=== PATIENT | male | born 1950 | race Caucasian/White ===

== ENCOUNTER → 2021-01-10 | Day surgery (SDC) | payer MEDICARE, BC ==
[2021-01-08 09:47] LABS: BASOPHILS # (AUTO) 0.1 (0.0-0.1); BASOPHILS % 1.1 % (0.0-1.0); EOSINOPHILS # (AUTO) 0.3 (0.0-0.4); HEMOGLOBIN 16.8 g/dL (12.0-16.0); LYMPHOCYTES # (AUTO) 2.2 (1.0-3.2); LYMPHOCYTES % 26.4 % (18.0-39.1); MEAN CORPUSCULAR HEMOGLOBIN 28.3 pg (28-32); MEAN CORPUSCULAR HGB CONC 32.9 g/dL (31-35); MEAN CORPUSCULAR VOLUME 85.9 fL (81-99); MONOCYTES # (AUTO) 0.8 (0.2-0.8); MONOCYTES % 8.9 % (4.4-11.3); NEUTROPHILS # (AUTO) 5.1 (2.1-6.9); NEUTROPHILS % 60.2 % (38.7-80.0); PLATELET COUNT 154 x10e3/uL (140-360); RED BLOOD COUNT 5.94 x10e6/uL (3.6-5.1); RED CELL DISTRIBUTION WIDTH 14.2 % (11.7-14.4)
[2021-01-08 10:05] LABS: ANION GAP 14.3 mmol/L (8-16); CALCIUM 9.4 mg/dL (8.4-10.2); CREATININE, SERUM 1.08 mg/dL (0.57-1.11); POTASSIUM 4.3 mmol/L (3.5-5.1)
[~2021-01-10] MED LIST: B&O 60MG R/S 60 MG SUPP PR ONE; CEFTRIAXONE 1 GM VIAL ONE; CIALIS5 MG PO; DEXAMETHASONE SOD PHOS INJ 4 MG/ML VIAL ONE; FINASTERIDE5 MG PO; GENTAMICIN 80MG/NS 100 ML 200 ML IV ONE; IOPAMIDOL 300MG/ML 50ML INFUS..BTL IV ONE; LIDOCAINE HCL 2% LOCAL INJ 5 ML SDV VIAL INJ ONE; LIPITOR10 MG PO; METFORMIN HCL500 MG PO; ONDANSETRON HCL INJ 2MG/ML 2ML 2 MG/ML VIAL ONE; POVIDONE IODINE 0.05% 0.05 % ML PO ONE; PROPOFOL IV EMULSION 10 MG/ML 20 ML VIAL ONE; SEVOFLURANE INHAL SOLN 250 ML PEN BTL ONE; SODIUM CHLORIDE 0.9% 50ML 50 ML ONE
[2021-01-10 13:10] VITALS: BP 157/88
== END | disposition home or self-care (01) ==
LOC: OR 08:53 → EDSEX 09:00
PROVIDERS: ATTEND Urology
DX: N40.1 Benign prostatic hyperplasia with lower urinary tract symptoms (principal); N13.8 Other obstructive and reflux uropathy; R39.12 Poor urinary stream; R35.0 Frequency of micturition; N39.41 Urge incontinence; R35.1 Nocturia; R39.14 Feeling of incomplete bladder emptying; N52.9 Male erectile dysfunction, unspecified; N32.89 Other specified disorders of bladder; E11.9 Type 2 diabetes mellitus without complications; R00.1 Bradycardia, unspecified; E78.00 Pure hypercholesterolemia, unspecified; Z01.810 Encounter for preprocedural cardiovascular examination; Z01.812 Encounter for preprocedural laboratory examination; Z01.818 Encounter for other preprocedural examination; Z20.822 Contact with and (suspected) exposure to COVID-19; Z79.84 Long term (current) use of oral hypoglycemic drugs
CPT/HCPCS: 52005; C9740; 36415; 71046; 74420; 80048; 82948; 85025; 93005; C1758; J0696; J1100; J1580; J2001; J2405; L8699; U0002